=== PATIENT | male | born 1950 | race Caucasian/White ===

== ENCOUNTER 2019-02-05 11:14 | Emergency (ER) | payer MEDICARE ==
[~2019-02-05] VITALS: Ht 182.9 cm; Wt 98.9 kg
[2019-02-05 12:05] LABS: BASOPHILS ABSOLUTE AUTO 0.03 K/mm3 (0.00-0.23); BASOPHILS PERCENT AUTO 0 % (0-2); EOSINOPHILS ABSOLUTE AUTO 0.03 K/mm3 (0.00-0.68); EOSINOPHILS PERCENT AUTO 0 % (0-6); Hematocrit 42.5 % (37.0-53.0); Hemoglobin 14.3 g/dL (13.5-17.5); IMMATURE GRAN ABSOLUTE AUTO 0.11 K/mm3 (0.00-0.10); IMMATURE GRAN PERCENT AUTO 2 % (0-1); LYMPHOCYTES ABSOLUTE AUTO 0.71 K/mm3 (0.84-5.20); LYMPHOCYTES PERCENT AUTO 10 % (21-46); MONOCYTES ABSOLUTE AUTO 0.37 K/mm3 (0.16-1.47); MONOCYTES PERCENT AUTO 5 % (4-13); Mean Corpuscular HGB 29.9 pg (26.0-34.0); Mean Corpuscular HGB Conc 33.6 g/dL (31.5-36.5); Mean Corpuscular Volume 89 fL (80-100); Mean Platelet Volume 9.9 fL (9.1-12.4); NEUTROPHILS ABSOLUTE AUTO 6.18 K/mm3 (1.96-9.15); NEUTROPHILS PERCENT AUTO 83 % (41-73); Platelet Count 166 K/mm3 (150-400); RDW Coefficient Variation 12.7 % (11.7-14.2); RDW Standard Deviation 41.5 fL (35.1-46.3); Red Blood Cell Count 4.79 M/mm3 (4.30-5.90); White Blood Cell Count 7.43 K/mm3 (4.00-11.30)
[2019-02-05 12:29] LABS: Alanine Aminotransfer (ALT/SGP 23 U/L (12-78); Albumin, Blood 3.6 g/dL (3.4-5.0); Albumin/Globulin Ratio 1.1 (0.8-1.8); Alk Phos 72 U/L (50-136); Anion Gap 8 mmol/L (6-16); Aspartate Aminotrans (AST/SGOT 17 U/L (12-37); Bilirubin, Total 0.4 mg/dL (0.1-1.0); Blood Urea Nitrogen 12 mg/dL (8-24); Bun/Creatinine Ratio 11.4 (12.0-20.0); CO2, Blood 24 mmol/L (21-32); Calcium, Blood 8.5 mg/dL (8.5-10.1); Chloride, Blood 110 mmol/L (98-108); Creatinine, Blood 1.05 mg/dL (0.60-1.20); Globulin, Blood 3.3 g/dL (2.2-4.0); Glomerular Filtration Rate >60 (60-); Glucose, Blood 106 mg/dL (70-99); Sodium, Blood 142 mmol/L (136-145); Total Protein, Blood 6.9 g/dL (6.4-8.2); Troponin I <0.015 ng/mL (0.000-0.040)
[2019-02-05 12:32] LABS: Influenza A Negative (NEGATIVE); Influenza B Negative (NEGATIVE)
[2019-02-05] MEDS ORDERED: TACR1 PO (12:38)
[2019-02-05] MEDS ORDERED: ZOLP10 PO (12:39)
[2019-02-05] MEDS ORDERED: PRED5 PO (12:39)
[2019-02-05] MEDS ORDERED: MICROZIDE12.5 MG (12:40)
[2019-02-05] MEDS ORDERED: Bactrim 400-801 EACH PO (12:40)
[2019-02-05] MEDS ORDERED: B Complex-Foli1 EACH PO (12:41)
[2019-02-05] MEDS ORDERED: Ropinirole HCl1 MG PO (12:41)
[2019-02-05] MEDS ORDERED: MYCO250 PO (12:42)
[2019-02-05] MEDS ORDERED: FINA5 PO (12:43)
[2019-02-05] MEDS ORDERED: PANT40 PO (12:43)
[2019-02-05] MEDS ORDERED: ROSU10TA PO (12:43)
[2019-02-05] MEDS ORDERED: MAGNESIUM OXID500 MG PO (12:44)
== END 2019-02-05 13:28 | disposition home or self-care (01) ==
LOC: ER 11:14
PROVIDERS: Emergency Medicine
DX: J40 Bronchitis, not specified as acute or chronic (principal); R07.89 Other chest pain; I48.91 Unspecified atrial fibrillation; E78.5 Hyperlipidemia, unspecified; Z79.899 Other long term (current) drug therapy
CPT/HCPCS: 71045; 80053; 80197; 83880; 84484; 85025; 87496; 87804; 93005; 93010; 99285-25

== ENCOUNTER → 2022-03-29 | Outpatient (CLI) | payer OTHER ==
[~2022-03-29] MED LIST: B Complex-Foli1 EACH PO; Bactrim 400-801 EACH PO; FINA5 PO; MAGNESIUM OXID500 MG PO; MICROZIDE12.5 MG; MYCO250 PO; PANT40 PO; PRED5 PO; ROSU10TA PO; Ropinirole HCl1 MG PO; TACR1 PO; ZOLP10 PO
== END ==
LOC: PLD 14:15 → LAB SHORT 14:15
DX: D49.2 Neoplasm of unspecified behavior of bone, soft tissue, and skin (principal)
CPT/HCPCS: 88342